=== PATIENT | female | born 1985 | race American Indian/Alaskan Native ===

== ENCOUNTER 2016-10-14 07:05 | Day surgery (SDC) | payer OTHER ==
--- NOTE | 2016-10-09 10:39 | Anesthesia Consultation ---
Anesthesia Consult and Med Hx Date of service: 10/14/16 - Airway Anesthetic Teeth Evaluation: Good ROM Head & Neck: Adequate Mental/Hyoid Distance: Adequate Mallampati Class: Class II Intubation Access Assessment: Good - Pulmonary Exam CTA: Yes - Cardiac Exam Cardiac Exam: RRR - Pre-Operative Health Status ASA Pre-Surgery Classification: ASA3 Proposed Anesthetic Plan: General - Pulmonary Hx Smoking: Yes COPD: Yes - Central Nervous System Hx Seizures: Yes Hx Psychiatric Problems: No - Hematic Hx Anemia: Yes - Other Systems Hx Alcohol Use: Yes (occas) Hx Substance Use: Yes (marijuana daily) Hx Cancer: No
[2016-10-09 10:42] LABS: Basophils % (Auto) 0.5 % (0.0-1.8); Eosinophils % (Auto) 1.1 % (0.0-4.3); Hematocrit 37.1 % (30.3-42.9); Hemoglobin 12.1 gm/dl (10.1-14.3); Mean Corpuscular HGB Conc 33 % (30-34); Mean Corpuscular Volume 70 fl (79-97); Platelet Count 262 K/mm3 (140-440); Red Blood Count 5.27 M/mm3 (3.65-5.03); Red Cell Distribution Width 15.6 % (13.2-15.2); White Blood Count 5.5 K/mm3 (4.5-11.0)
[2016-10-09 10:43] LABS: Mean Corpuscular Hemoglobin 23 pg (28-32)
--- NOTE | 2016-10-14 06:43 | Short Stay Summary ---
Short Stay Documentation Date of service: 10/14/16 Narrative H&P: 31y/o with abnormal bleeding and undesired fertility. Patient has been using an IUD for contraception but elects for permanent sterilization Patient has been reassessed/reevaluated/re-examined. H&P has been reviewed. No interval changes. - History Principal diagnosis: DUB and unwanted fertility Past Medical History: other (epilepsy; anemia) Past Surgical History: cholecystectomy, Other (gastric bypass) Social history: - Allergies and Medications Current Medications: Allergies No Known Allergies Allergy (Verified 10/08/16 12:29) Home Medications Medication Instructions Recorded Confirmed Last Taken Type Folic Acid 20 mg PO QDAY 10/08/16 10/08/16 Unknown History Lacosamide [Vimpat] 150 mg PO QAM 10/08/16 10/08/16 Unknown History Lacosamide [Vimpat] 200 mg PO HS 10/08/16 10/08/16 Unknown History levETIRAcetam [Keppra TAB] 2,000 mg PO BID 10/08/16 10/08/16 Unknown History Active Medications Famotidine (Pepcid) 20 mg PO PREOP NR Stop: 10/14/16 23:59 Lactated Ringer's (Lactated Ringers) 1,000 mls @ 100 mls/hr IV DIRECT NAVEEN Midazolam HCl (Versed) 2 mg IV PREOP NR Stop: 10/14/16 23:59 - Physical exam General appearance: no acute distress Integumentary: no rash HEENT: Atraumatic Lungs: Clear to auscultation Breasts: deferred Heart: Regular rate Gastrointestinal: normal Female Genitourinary: deferred Rectal Exam: deferred - Brief post op/procedure progress note Date of procedure: 10/14/16 Pre-op diagnosis: dysfunctional uterine bleeding; unwanted fertility Post-op diagnosis: same Procedure: Laparoscopic bilateral tubal ligation with Filshie clips Removal of IUD Hysteroscopy Endometrial ablation via NovaSure Anesthesia: TIM Surgeon: EM KAN Estimated blood loss: minimal Pathology: list (IUD) Specimen disposition: to lab Condition: stable - Hospital course Hospital course: The patient was admitted the day of surgery and underwent a laparoscopic tubal ligation and hysteroscopy and endometrial ablation. Please see operative note for details of surgery. A postoperative course was uneventful. - Disposition Condition at discharge: Good Disposition: DISCHARGED TO HOME OR SELFCARE Short Stay Discharge Plan Activity: other (pelvic rest for 2 weeks) Diet: regular Additional Instructions: Patient may follow up with Dr. Toscano in 4 weeks
[2016-10-14] MEDS ORDERED: NACL BACTERIOSTATIC INFILTRATI ONE (07:40)
[2016-10-14] MEDS ORDERED: DILAUDID ONE (07:43)
[2016-10-14] MEDS ORDERED: DIPRIVAN 10 MG/ML IV ONE (07:43)
[2016-10-14] MEDS ORDERED: LACTATED RINGERS 1,000 ML IV SCH (08:00)
[2016-10-14] MEDS ORDERED: VERSED IV NR (08:00)
[2016-10-14] MEDS ORDERED: PEPCID PO NR (08:00)
[2016-10-14] MEDS ORDERED: ZEMURON IV ONE (08:11)
[2016-10-14] MEDS ORDERED: MARCAINE 0.5% 30 ML INFILTRATI ONE (08:12)
[2016-10-14] MEDS ORDERED: SILVER NITRATE TP ONE ×2 (08:12→09:25)
[2016-10-14] MEDS ORDERED: XYLOCAINE MPF 2% ONE (08:12)
[2016-10-14] MEDS ORDERED: ROBINUL ONE (08:12)
[2016-10-14] MEDS ORDERED: NEOSTIGMINE ONE (08:12)
[2016-10-14] MEDS ORDERED: DILAUDID IV PRN (08:39)
[2016-10-14] MEDS ORDERED: PERCOCET 5/325 PO PRN (08:39)
[2016-10-14] MEDS ORDERED: DECADRON ONE (08:44)
[2016-10-14] MEDS ORDERED: ZOFRAN ONE (08:44)
[2016-10-14] MEDS ORDERED: MARCAINE 0.5% INFILTRATI ONE (09:25)
--- NOTE | 2016-10-14 09:31 | Operative Report ---
Operative Report Operative Report: Date of procedure: 10/14/2016 Pre-operative diagnosis: Dysfunctional uterine bleeding; unwanted fertility Post-operative diagnosis: Same as above Procedure name(s): Hysteroscopy; endometrial ablation via NovaSure; laparoscopic bilateral tubal ligation with Filshie clips; removal of IUD Surgeon: Emiliana Wong M.D. Hair Stylist: None Anesthesia: General endotracheal anesthesia Findings IUD in the lower uterine segment; normal uterus tubes and ovaries Indication: 31-year-old black female with a history dysfunctional uterine bleeding. The patient also has unwanted fertility and has elected to undergo permanent sterilization. Procedure The patient was taken to the operating room and given general tracheal anesthesia without complication. The patient was prepped and draped in a normal sterile fashion. A bivalve speculum was placed in the patient's vagina single-tooth tenaculums placed on the anterior lip of the cervix. The Mirena IUD was then grasped with a ring forcep and removed. A uterine acorn manipulator was then placed. Attention was then turned to the patient's abdomen where a 5 mm infraumbilical skin incision was then made. Under direct visualization a 5 mm trocar was then entered. Insufflation of the peritoneal cavity was performed with CO2 gas. The patient was then placed in Trendelenburg. A 7 mm suprapubic skin incision was then made. And under direct visualization a 7 mm trocar was inserted. Total survey of the patient's abdomen and pelvis revealed normal uterus tubes and ovaries bilaterally. A Filshie clip was placed on the right and plantar portion of the tube. Placement was not satisfactory so a second Filshie clip was applied to the right fallopian tube. Attention was then turned to the patient's left fallopian tube where one Filshie clip was placed on the ampullary portion of the tube adequately. There was evidence of omental adhesions near the liver edge. The 7 mm trocar was then removed under direct visualization. The pneumoperitoneum was released and the 5 mm trocar was also removed. The skin incisions were then closed with 4-0 Monocryl in a subcuticular fashion. The sites were injected with Marcaine. A bivalve speculum was placed back in the patient's vagina. The cervical os was dilated with graduated dilators. A uterine sound was inserted. The hysteroscope was then placed. Insufflation of the uterine cavity was performed with normal saline. Gen. survey of the uterine cavity revealed normal endometrial cavity. The hysteroscope was then removed. The NovaSure device was then inserted. The endometrial length was 6.0 cm and the uterine width was 0.1 cm. The device was engaged and it passed the surveillance of the uterine cavity. The NovaSure device was then deployed with a energy of 102 that lasted for 55 seconds. The NovaSure device was then removed. The hysteroscope was again reinserted. There was evidence of charring of the endometrial surface. The remainder of the vaginal instruments were then removed atraumatically. The patient was then successfully extubated taken to the recovery room. All sponge laps and needle counts were correct 2.
[2016-10-14 10:36] VITALS: BP 116/70
== END 2016-10-14 10:53 | disposition home or self-care (01) ==
LOC: OR 07:05
PROVIDERS: ATTEND Obstetrics & Gynecology
DX: Z30.2 Encounter for sterilization (principal); N93.8 Other specified abnormal uterine and vaginal bleeding; D64.9 Anemia, unspecified; G40.909 Epilepsy, unspecified, not intractable, without status epilepticus; J44.9 Chronic obstructive pulmonary disease, unspecified; F12.90 Cannabis use, unspecified, uncomplicated; Z98.84 Bariatric surgery status; Z90.49 Acquired absence of other specified parts of digestive tract; Z87.891 Personal history of nicotine dependence; Z72.89 Other problems related to lifestyle
CPT/HCPCS: 36415; 58301; 58563; 58671; 84703; 85025; 88302; J1100; J1170; J2250; J2405; J2704; J2710; J7120; 88300